=== PATIENT | male | born 1960 | race Caucasian/White ===

== ENCOUNTER 2025-07-12 17:52 | Emergency (ER) | payer MEDICARE, MEDICAID, SELFPAY ==
--- NOTE | ~2025-07-12 | XR_ITS ---
CLINICAL HISTORY: choked on meat, florin performed 2 view chest x-ray Comparison: None provided Findings: Mild left lower lobe patchy opacities/atelectasis. No significant pleural effusion or pneumothorax. Heart size is normal. No acute fracture. IMPRESSION: Mild left lower lobe patchy opacities/atelectasis. This document has been electronically signed by: Dickson Quiñones MD on 07/12/2025 19:31:02
--- NOTE | ~2025-07-12 | CT_ITS ---
CLINICAL HISTORY: ams CT head without contrast Comparison: None provided Findings: No acute intracranial hemorrhage. No midline shift or hydrocephalus. No large arterial territorial infarction by CT. Mild white matter lesions suggested as can be seen with small-vessel ischemic disease. Mild volume loss is generalized. Mucosal thickening involves of the imaged paranasal sinuses with atelectasis of the remodeling of the right maxillary sinus. Imaged mastoid air cells are well aerated. No acute skull fracture. Vascular calcifications noted. IMPRESSION: No acute intracranial abnormality by CT This document has been electronically signed by: Magnus Polo MD on 07/13/2025 01:27:50
[2025-07-12 18:06] VITALS: BP 107/78; BP 108/64; PULSE 110; PULSE 93; RESP 16; TEMP 36.3; O2SAT 98; O2SAT 99; BMI 23.8
--- OUTSIDE RECORDS SUMMARY | 2025-07-12 18:27 | XMS_ITS | Clinical Summary ---
Author Organization [facility] Address [address] [place] [address] Phone Care Team Providers Care Lighting Engineer Name Role Phone Sree Chang MD Primary Care Provider [phone] Allergies No known active allergies Medications lisinopriL (PRINIVIL,ZESTRI L) 20 mg tablet Take 1 tablet (20 mg total) by mouth 1 (one) time each day. Active memantine (NAMENDA) 10 mg tablet Take 1 tablet (10 mg total) by mouth 2 (two) times a day. Active QUEtiapine (SEROquel) 25 mg tablet Take 1 tablet (25 mg total) by mouth at bedtime. Active hydroCHLOROthiaz tiffani (MICROZIDE) 12.5 mg capsule Take 1 capsule (12.5 mg total) by mouth 1 (one) time each day. Active donepezil ODT (ARICEPT ODT) 5 mg dispersible tablet Dissolve 1 tablet (5 mg total) on top of the tongue at bedtime. Active Active Problems Problem Noted Date Diagnosed Date Primary hypertension 01/22/2025 Anxiety 01/22/2025 Depression 01/22/2025 Sjogren syndrome (CMS/HCC V24) 01/22/2025 Insomnia due to other mental disorder 01/22/2025 Memory loss 01/22/2025 Medical History Medical History Date Comments Hypertension Depression Sjogren's disease (CMS/HCC V24) Anxiety Memory loss Social History Tobacco Use Types Packs/Day Years Used Date Smoking Tobacco: Former Cigarettes Smokeless Tobacco: Never Tobacco Cessation:Counseling Given: Not Answered Alcohol Use Standard Drinks/Week Comments Yes 0 (1 standard drink = 0.6 oz pur e alcohol) 1-2 beer per every few weeks Sex and Gender Information Value Date Recorded Sex Assigned at Male 12/11/2024 10:54 AM EST Legal Sex Male 10:49 AM EST Gender Identity Male 12/11/2024 10:54 AM EST Sexual Orientation Straight 12/24/2024 7: 01 PM EDT Obstetrics History Plan of Treatment Health Maintenance Due Date Last Done Comments Colorectal Cancer Screening: Colonoscopy 1958 DTaP,Tdap,and Td Vaccines (1 - Tdap) 1977 Pneumococcal Vaccine: 50+ Years (1 of 1 - PCV) 2008 Zoster Vaccines (1 of 2) 2008 Depression Screening 10/09/2024 Abdominal Aortic Aneurysm (AAA) Screen 12/12/2024 Cholesterol Screening (Lipid Panel) 12/12/2024 Falls Risk Assessment 12/12/2024 Hepatitis C Screening 12/12/2024 Social Influencers of Health Screening 12/12/2024 Hypertension/CHF/CAD Annual BMP Blood Test 01/22/2025 COVID-19 Vaccine (3 - 2024-2 6 season) 2025 03/05/2021, 02/05/2021 Influenza Vaccine (#1) 2025 , 07/10/2020 RSV Immunization Adult Patients (1 - 1-dose 75+ series) 2033 HIB Vaccines Aged Out No longer eligi ble based on patient's age to complete this topic HPV Vaccines Aged Out No longer eligi ble based on patient's age to complete this topic Hepatitis A Vaccines Aged Out No long er eligible based on patient's age to complete this topic Hepatitis B Vaccines Aged Out No long er eligible based on patient's age to complete this topic IPV Vaccines Aged Out No longer eligi ble based on patient's age to complete this topic MMR Vaccines Aged Out No longer eligi ble based on patient's age to complete this topic Meningococcal ACWY Vaccine Aged Out N o longer eligible based on patient's age to complete this topic Meningococcal B Vaccine Aged Out No l onger eligible based on patient's age to complete this topic RSV Immunization Patients Under 20 months Aged Out No longer eligible b ased on patient's age to complete this topic Varicella Vaccines Aged Out No longer eligible based on patient's age to complete this topic Care Teams Lighting Engineer Relationship Specialty Start Date End Date Sree Chang MD [address] [place], [place] PCP - General Internal Medicine 12/24/24
--- NOTE | 2025-07-12 19:38 | ED_ITS ---
HPI - General Adult General Chief complaint: General Medical Stated complaint: Went unresponsive while choking given hemilich Time Seen by Provider: 07/12/25 19:01 Source: patient Mode of arrival: ambulatory Limitations: altered mental status History of Present Illness ED Provider: Dr. Newell [facility] narrative: 64-year-old male presented hospital today from [facility] for evaluation after a choking episode. Patient was choking on a piece of meat. Patient was suctioned. The meat was removed. Patient was notably hypoxic briefly in the 80s however O2 saturation recovered to the 90s. At baseline facility noted that patient is confused. He is A&O x2. History is limited due to patient's confusion. Facility stated that since the patient has been with him they noticed that he has been increasingly confused over the course of the month. Related Data Previous Rx's ?Medication ?Instructions ?Recorded levofloxacin 500 mg tablet 500 mg PO DAILY #9 tabs 03/02 Allergies Allergy/AdvReac Type Severity Reaction Status Date / Time bee pollen (bees) Allergy Unknown Unknown Verified 07/12/25 18:12 Review of Systems 2 Review of Systems: Pertinent review of systems as mentioned in HPI. All other system otherwise negative. [facility] Past Medical History [facility] Narrative: Medical history as mentioned in [facility] Social History Social History Smoked in Last 30 Days: No Use of substances other than those prescribed or required for medical reasons: No Advance Directives: No Advance Directives Information Provided: No Do you have a plan to hurt others: No Plan Physical Exam ED Exam Exam: General: Confused and cachectic appearing Head: Normacephalic, atraumatic ENT: oral mucosa moist, neck supple, no tracheal deviation Cardiovascular: regular rate, regular rhythm, no murmurs, rubbing, gallops Respiratory: CTAB, no wheeze, rales, rhonchi Gastrointestinal: Soft, slight distention, non tender, non guarding Extremities: No limb pain or swelling, no calf tenderness Neurological: Awake and alert, no facial droop noted Skin: Warm and dry Psychiatric: Appears encephalopathic, alert to self and place Vital Signs: Vital Signs - 24 hr 07/12/25 18:06 07/12/25 22:57 07/12/25 23:47 Temperature 97.4 F 98.6 F 98.1 F Pulse Rate 93 65 72 Respiratory Rate 16 16 16 Blood Pressure 107/78 122/74 140/88 H Pulse Oximetry 98 97 98 Oxygen Delivery Method Room Air Room Air Room Air 07/13/25 02:41 07/13/25 03:08 07/13/25 04:12 Temperature 97.9 F 98.7 F 98.0 F Pulse Rate 78 87 74 Respiratory Rate 16 16 14 Blood Pressure 128/89 149/72 H 134/85 Pulse Oximetry 97 96 98 Oxygen Delivery Method Room Air Room Air Room Air BMI result Body Mass Index 23.8 Medications Administered Discontinued Medications Generic Name Dose Route Start Last Admin Trade Name Freq PRN Reason Stop Dose Admin Sodium Chloride 1,000 mls @ 999 mls/hr 07/12/25 22:15 07/12/25 23:54 Ns IV 07/12/25 23:15 Infused .Q1H1M IVAN Infusion Quetiapine Fumarate 50 mg 07/12/25 19:44 07/12/25 20:36 Quetiapine Fumarate 50 Mg Tablet PO 07/12/25 19:45 50 mg ONCE ONE Administration Medical Decision Making Medical Decision Making MDM Narrative: 64-year-old male presented hospital today for evaluation of a choking episode. I think collaborative information from [place]. They stated the patient at baseline is or alert and oriented x2. He is able to hold conversation. My evaluation the patient he does appear to be confused. He is able to respond to some questions. They were concerned that patient has been having increasingly confusion with a course of a month. I will obtain basic lab work and metabolic workup for the patient including CT head. To identify cause of confusion. If lab work and imaging are negative. I think patient may be appropriate to be discharged back to evaluate [facility]. UA will be obtained to rule out UTI. We will plan to give patient a bolus IV fluid. Signed out to night provider pending imaging and lab work. My interpretation of labs: Patient has anemia, no previous labs for comparison, blood gases within normal limits, no abnormality in patient's chemistry, normal urine Head CT does not show any acute abnormality Chest x-ray shows left lower lobe patchy opacities atelectasis. It is possible the patient may have aspirated. Patient will be empirically covered with antibiotics. Patient has been stable, oxygen saturation 98% on room air. Differential Diagnosis Differential Diagnoses: The differential diagnosis associated with the presentation includes Intracranial bleed, UTI, electrolyte abnormality, pneumonia Admission/Observation Consideration of admission/observation: Escalation of care including admission/observation considered (Given patient's episode of choking/aspiration pneumonia, observation was considered.) Lab Data MDM Lab Attestation statement: I reviewed the patient's lab results. 07/12/25 22:51 07/12/25 22:51 Labs: Lab Results 07/12/25 07/12/25 07/13/25 Range/Units 22:51 22:57 01:06 WBC 7.9 (4.8-10.8) X10*3/uL RBC 3.30 L (4.60-5.80) X10*6/uL Hgb 10.8 L (14.0-18.0) g/dl Hct 30.5 L (42.0-52.0) % MCV 92.4 (80.0-98.0) fL MCH 32.7 (27.0-33.0) pg MCHC 35.4 (31.0-36.0) g/dl RDW 12.3 (11.0-16.0) % Plt Count 158 L (160-400) X10*3/uL MPV 9.4 (9.4-12.4) fL Immature Gran % (Auto) 0.4 (0.0-0.4) % Neut % (Auto) 83.2 H (45-73) % Lymph % (Auto) 7.1 L (20-40) % Mccreary % (Auto) 9.2 (2-11) % Eos % (Auto) 0.0 (0-4) % Baso % (Auto) 0.1 (0-2) % Lymph # (Auto) 0.6 L (1.2-4.9) X10*3/uL Mccreary # (Auto) 0.7 (0.1-1.2) X10*3/uL Eos # (Auto) 0.0 (0.0-0.4) X10*3/uL Baso # (Auto) 0.0 (0.0-0.2) X10*3/uL Abs Immat Gran (auto) 0.03 (0.00-0.03) X10*3/uL Absolute Neuts (auto) 6.6 (2.0-8.3) x10*3/uL Absolute Nucleated RBC 0.000 (0.0-0.012) X10*3/uL Nucleated RBC % (auto) 0.0 (0.0-0.2) /100WBC VBG pH 7.45 H (7.32-7.43) VBG pCO2 46 mmHg VBG pO2 64 mmHg VBG HCO3 32 H (22-26) mmol/L VBG O2 Saturation 89.0 % VBG Base Excess 7.4 mmol/L Sodium 136 (135-145) mmol/L Potassium 4.0 (3.3-5.1) mmol/L Chloride 102 (96-108) mmol/L Carbon Dioxide 29 (22-29) mmol/L Anion Gap 9 L (12-20) BUN 23 H (9-16) mg/dL Creatinine 1.18 (0.5-1.4) mg/dL Estim Creat Clear Calc 47.5 Estimated GFR > 60 Random Glucose 113 (60-115) mg/dL Calcium 8.9 (8.4-10.2) mg/dL Total Bilirubin 0.3 (0.0-1.0) mg/dL AST 45 H (5-37) U/L ALT 39 (0-40) U/L Alkaline Phosphatase 78 (39-117) U/L Ammonia 29 (13-55) umol/L Total Protein 7.0 (6.5-8.0) g/dL Albumin 3.7 (3.5-5.0) g/dL Beta-Hydroxybutyrate 0.17 (0.02-0.27) mmol/L TSH 1.81 (0.32-4.0) uIU/mL Urine Color Yellow Urine Appearance Clear Urine pH 7.0 (5.0-9.0) Ur Specific Auberry 1.020 (1.005-1.025) Urine Protein 30 (1+) H (Neg-Trace) mg/dL Urine Glucose (UA) Negative (Negative) mg/dL Urine Ketones Negative (Negative) mg/dL Urine Blood Negative (Negative) Urine Nitrite Negative (Negative) Ur Leukocyte Esterase Negative (Negative) Urine RBC 0-2 (0-2) /HPF Urine WBC 0-5 (0-5) /HPF Ur Squamous Epith Cells 0-2 (0-2) /HPF Urine Bacteria None Seen (None Seen) Hyaline Casts 3-5 (0-2) /LPF Independent Interpretation I performed an independent interpretation of an: Plain X-Ray and CT Scan Radiology Impression Discussion of test interpretation with radiology: I have reviewed the radiologist's reading. Radiologist Impression: No acute intracranial hemorrhage. No midline shift or hydrocephalus. No large arterial territorial infarction by CT. Mild white matter lesions suggested as can be seen with small-vessel ischemic disease. Mild volume loss is generalized. Mucosal thickening involves of the imaged paranasal sinuses with atelectasis of the remodeling of the right maxillary sinus. Imaged mastoid air cells are well aerated. No acute skull fracture. Vascular calcifications noted. IMPRESSION: No acute intracranial abnormality by CT Mild left lower lobe patchy opacities/atelectasis. No significant pleural effusion or pneumothorax. Heart size is normal. No acute fracture. IMPRESSION: Mild left lower lobe patchy opacities/atelectasis. Critical Care Time Critical Care Time Critical Care Time: Yes Total Critical Care Time: 35 Attestation: I have personally provided critical care time. Time includes review of lab data, radiology results, discussion with consultants, and monitoring for potential decompensation. Intervention performed as documented. Discharge Plan Discharge Clinical Impression: Choking episode, Aspiration pneumonia Patient Disposition: Home, Self-Care Instructions: Aspiration Pneumonia (DC), Aspiration Precautions (ED) Additional Instructions: Please follow-up with your primary care physician tomorrow. If you have any worsening or new symptoms, please return to the emergency room or call 911 Prescriptions: New levofloxacin 500 mg tablet 500 mg PO DAILY Qty: 9 0RF Print Language: Kazakh
[2025-07-12 22:57] VITALS: BP 122/74; PULSE 65; RESP 16; TEMP 37; O2SAT 97
[2025-07-12 22:57] LABS: MANUAL DIFF FLAG NO
[2025-07-12 22:58] LABS: Hematocrit 30.5 % (42.0-52.0); Hemoglobin 10.8 g/dl (14.0-18.0); Imm Gran Abs Auto 0.03 X10*3/uL (0.00-0.03); Imm Gran Pct Auto 0.4 % (0.0-0.4); Lymphocytes Absolute Auto 0.6 X10*3/uL (1.2-4.9); Mean Corpuscular HGB Conc 35.4 g/dl (31.0-36.0); Mean Corpuscular Hemoglobin 32.7 pg (27.0-33.0); Mean Corpuscular Volume 92.4 fL (80.0-98.0); NRBC Abs Auto 0.000 X10*3/uL (0.0-0.012); NRBC Pct Auto 0.0 /100WBC (0.0-0.2); Platelet Count 158 X10*3/uL (160-400); Red Blood Count 3.30 X10*6/uL (4.60-5.80); White Blood Count 7.9 X10*3/uL (4.8-10.8)
[2025-07-12 22:59] LABS: Venous Blood Gas Refer to POC result
[2025-07-12 23:01] LABS: VBG HCO3 32 mmol/L (22-26); VBG O2 % Saturation 89.0 %
[2025-07-12 23:06] LABS: Ammonia 29 umol/L (13-55)
[2025-07-12 23:20] LABS: Alanine Aminotransferase 39 U/L (0-40); Albumin Level 3.7 g/dL (3.5-5.0); Alkaline Phosphatase 78 U/L (39-117); Anion Gap 9 (12-20); Aspartate Amino Transferase 45 U/L (5-37); Blood Urea Nitrogen 23 mg/dL (9-16); Calcium 8.9 mg/dL (8.4-10.2); Carbon Dioxide 29 mmol/L (22-29); Chloride 102 mmol/L (96-108); Creatinine Clr Calc Pharmacy 47.5; Estimated Glomerular Filt Rate > 60; Potassium 4.0 mmol/L (3.3-5.1); Sodium 136 mmol/L (135-145); Total Protein 7.0 g/dL (6.5-8.0)
[2025-07-12 23:47] VITALS: BP 140/88; PULSE 72; RESP 16; TEMP 36.7; O2SAT 98
[2025-07-13 01:15] LABS: Appearance Urine Clear; Glucose Urine UA Negative (Negative); PH 7.0 (5.0-9.0); Specific Gravity - Urine 1.020 (1.005-1.025); UMIC TRIGGER UA YES
[2025-07-13 02:41] VITALS: BP 128/89; PULSE 78; RESP 16; TEMP 36.6; O2SAT 97
[2025-07-13 03:08] VITALS: BP 149/72; PULSE 87; RESP 16; TEMP 37.1; O2SAT 96
[2025-07-13 04:12] VITALS: BP 134/85; PULSE 74; RESP 14; TEMP 36.7; O2SAT 98
--- NOTE | 2025-07-13 05:11 | PC.NURSE ---
Rn called [facility] and spoke to devulcanizer chargerAMRIK calabrese and gave report. Awaiting ems to transport pt back.
[2025-07-13 05:42] VITALS: BP 134/85; PULSE 74; RESP 14; TEMP 36.7; O2SAT 98
== END 2025-07-13 05:42 | disposition home or self-care (01) ==
PROVIDERS: Student in an Organized Health Care Education/Training Program; Emergency Provider Emergency Medicine
DX: J69.0 Pneumonitis due to inhalation of food and vomit (principal); R09.89 Other specified symptoms and signs involving the circulatory and respiratory systems; R11.0 Nausea; R40.4 Transient alteration of awareness; Z79.899 Other long term (current) drug therapy
CPT/HCPCS: 36415; 70450; 71046; 80053; 81001; 82010; 82140; 82803; 84443; 85025; 96360; 99284

== ENCOUNTER → 2025-07-12 18:15 | Outpatient (BNV) | payer MEDICARE, MEDICAID, SELFPAY | PROVIDERS: Emergency Provider Student in an Organized Health Care Education/Training Program; Visit Provider Radiology Diagnostic Radiology | DX: R41.82 Altered mental status, unspecified (principal) | CPT/HCPCS: 70450 ==